=== PATIENT | male | born 1980 | race Caucasian/White ===

== ENCOUNTER 2021-12-28 08:33 | Observation (INO) | payer OTHER ==
[~2021-12-28] VITALS: Ht 190.5 cm; Wt 127.0 kg
[~2021-12-28 08:33] MED LIST: BENADRYL 25MG C25 MG PO; BENADRYL 50MG C50 MG PO; CLEOCIN HCL300 MG PO; CRESTOR20 MG PO; DIFLUCAN200 MG PO; FLEXERIL 10 MG10 MG PO; IBUPROFEN800 MG PO; MEDROL DOSEPAK 24 MG PO; MEDROL4 MG PO; MYCOSTATIN100000 UTS PO; NAPROSYN500 MG PO; NEXIUM20 MG PO; NORCO 5-325 TA1 EACH PO; NORVASC10 MG PO; ONDANSETRON ODT4 MG PO; PEPCID20 MG PO; PERCOCET 5/325 T1 EA PO; PHENERGAN 25 MG25 M1 PO; PREDNISONE50 MG PO; PROTONIX40 MG PO; ROBITUSSIN AC480 ML PO; ROBITUSSIN100 MG/51 PO; XANAX1 MG PO; ZITHROMAX250 MG PO; ZOFRAN4 MG PO
[2021-12-28 09:34] LABS: HEMOGLOBIN 14.5 gm/dl (14.0-17.5); RED BLOOD COUNT 4.94 M/UL (4.20-5.50); WHITE BLOOD COUNT 11.5 K/UL (4.5-11.0)
[2021-12-28 10:04] LABS: BUN/CREATININE RATIO 10 (0-10)
[2021-12-28] MEDS ORDERED: FAMOTIDINE20 MG PO (13:31)
[2021-12-28] MEDS ORDERED: XANAX0.5 MG PO (13:32)
[2021-12-28] MEDS ORDERED: CARVEDILOL25 MG PO (13:33)
[2021-12-28] MEDS ORDERED: HYDRALAZINE HCL25 MG PO (13:34)
[2021-12-28] MEDS ORDERED: CHLORTHALIDONE25 MG PO (13:34)
[2021-12-28] MEDS ORDERED: FLONASE 0.05% N16 GM (13:35)
[2021-12-28] MEDS ORDERED: BENICAR40 MG PO (13:35)
[2021-12-28] MEDS ORDERED: CETIRIZINE HCL10 MG PO (13:35)
[2021-12-28] MEDS ORDERED: CRESTOR20 MG PO (13:36)
[2021-12-28] MEDS ORDERED: GABAPENTIN600 MG PO (13:37)
[2021-12-28] MEDS ORDERED: HYDROCODON-ACE1 EAC6 PO (13:38)
[2021-12-28] MEDS ORDERED: OMEPRAZOLE40 MG PO (13:39)
[2021-12-28] MEDS ORDERED: TIZANIDINE HCL4 MG PO (13:40)
[2021-12-28] MEDS ORDERED: COLCHICINE0.6 MG PO (13:40)
[2021-12-28] MEDS ORDERED: PROAIR HFA8.5 GM INH (13:42)
[2021-12-28] MEDS ORDERED: AFRIN15 M1 (13:43)
[2021-12-28] MEDS ORDERED: MULTIVITAMIN1 EACH PO (13:43)
[2021-12-29 06:54] LABS: RED BLOOD COUNT 4.53 M/UL (4.20-5.50); WHITE BLOOD COUNT 11.4 K/UL (4.5-11.0)
[2021-12-29 07:16] LABS: BUN/CREATININE RATIO 8 (0-10)
[2021-12-30 06:20] LABS: HEMOGLOBIN 11.9 gm/dl (14.0-17.5); RED BLOOD COUNT 4.13 M/UL (4.20-5.50); WHITE BLOOD COUNT 10.3 K/UL (4.5-11.0)
[2021-12-30 06:48] LABS: BUN/CREATININE RATIO 14 (0-10)
[2021-12-31] MEDS ORDERED: ASPIRIN EC81 MG PO (09:53)
[2022-01-01 06:04] LABS: HEMOGLOBIN 12.7 gm/dl (14.0-17.5); RED BLOOD COUNT 4.34 M/UL (4.20-5.50); WHITE BLOOD COUNT 9.8 K/UL (4.5-11.0)
[2022-01-01 06:32] LABS: BUN/CREATININE RATIO 16 (0-10)
== END 2022-01-01 15:17 | disposition home or self-care (01) ==
LOC: ER1 08:33 → CDU 10:59 → MED SURG 4 10:59
PROVIDERS: Internal Medicine; Nurse Practitioner; ADMIT Internal Medicine
DX: E86.0 Dehydration (principal); I95.9 Hypotension, unspecified; N17.9 Acute kidney failure, unspecified; I10 Essential (primary) hypertension; E78.5 Hyperlipidemia, unspecified; K21.9 Gastro-esophageal reflux disease without esophagitis; M10.9 Gout, unspecified; E87.6 Hypokalemia; G47.33 Obstructive sleep apnea (adult) (pediatric); F17.210 Nicotine dependence, cigarettes, uncomplicated; J44.9 Chronic obstructive pulmonary disease, unspecified; R73.03 Prediabetes; F41.9 Anxiety disorder, unspecified; M48.02 Spinal stenosis, cervical region; Z79.899 Other long term (current) drug therapy; Z86.73 Personal history of transient ischemic attack (TIA), and cerebral infarction without residual deficits; Z88.8 Allergy status to other drugs, medicaments and biological substances
CPT/HCPCS: ECHO; 36415; 70450; 71045; 72125; 80053; 80061; 82533; 82550; 82553; 83036; 83735; 84100; 84439; 84443; 84484; 85025; 93005; 93306; 93880; 94660; 94760; 99285; G0378; J7030